=== PATIENT | female | born 1990 | race Two or more races ===

== ENCOUNTER 2019-04-23 22:22 | Emergency (ER) | payer SELFPAY ==
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
[2019-04-23] MEDS ORDERED: ALPRAZolam 0.5 MG Tab.DIS (ODT) PO ONE (22:52)
[2019-04-23] MEDS ORDERED: ALPRAZolam 0.25 MG Tab PO ONE (23:13)
== END 2019-04-23 23:26 | disposition home or self-care (01) ==
LOC: CC.ED 22:22
DX: F41.9 Anxiety disorder, unspecified (principal); F17.210 Nicotine dependence, cigarettes, uncomplicated; Z88.0 Allergy status to penicillin
CPT/HCPCS: 99282; A9270-GY